=== PATIENT | female | born 2000 | race Caucasian/White ===

== ENCOUNTER 2019-03-15 10:25 | Outpatient (REF) | payer SELFPAY ==
[2019-03-16 13:46] LABS: Chlamydia Result Negative; GC Result Negative; Specimen Description URINE
== END 2019-03-15 10:45 ==
LOC: LBN 10:25
PROVIDERS: PCP Family Medicine; Visit Provider Nurse Practitioner Family
DX: Z11.3 Encounter for screening for infections with a predominantly sexual mode of transmission (principal)
CPT/HCPCS: 87491; 87591

== ENCOUNTER 2020-02-29 16:48 | Outpatient (REF) | payer OTHER, SELFPAY ==
--- NOTE | 2020-02-29 16:20 | PAPFT_PTH ---
PATIENT: Sandra Duran LOC: [facility] U#:[id number] AGE/SX: 20/F ROOM: RE02/29/[address]: Nicole Randall : 2000 BED: DIS: 02/29/2020 SPEC #: [id number] RECD: 03/03/20 12:59 STATUS: MARCUS REQ #: [id number] KIMMIE: 02/29/20 16:[address]: Nicole Randall DEPT: [facility] Cytology RECD BY: Caroline Goledn Tissues: 1 - CX/ENDOCX FOR PAP SMEARS Procedures: PAP THIN PREP/UVM Screening Comments: [id number] (CHLAMYDIA/GC)
[2020-03-04 15:29] LABS: Chlamydia Result Negative (Negative); GC Result Negative (Negative)
== END 2020-02-29 17:08 ==
LOC: NCHCN 16:48
PROVIDERS: PCP Family Medicine; Visit Provider Family Medicine
DX: Z12.4 Encounter for screening for malignant neoplasm of cervix (principal); Z00.00 Encounter for general adult medical examination without abnormal findings; Z01.419 Encounter for gynecological examination (general) (routine) without abnormal findings; Z11.3 Encounter for screening for infections with a predominantly sexual mode of transmission
CPT/HCPCS: 87491; 87591; 88142

== ENCOUNTER 2023-07-25 11:39 | Emergency (ER) | payer MEDICAID, SELFPAY ==
[2023-07-25 11:43] VITALS: BP 158/107; PULSE 81; RESP 18; TEMP 36.5; O2SAT 98
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
[2023-07-25 12:00] VITALS: BP 126/103; PULSE 81; O2SAT 99
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
[2023-07-25 12:15] VITALS: BP 138/94; PULSE 72; O2SAT 98
[2023-07-25] MEDS: Ketorolac 10 MG TAB PO (12:15)
[2023-07-25 13:35] VITALS: BP 143/97; PULSE 78; RESP 16; O2SAT 100
== END 2023-07-25 13:35 | disposition home or self-care (01) ==
PROVIDERS: Emergency Provider Nurse Practitioner Family; PCP Family Medicine
DX: R51.9 Headache, unspecified (principal); S06.0XAA Concussion with loss of consciousness status unknown, initial encounter; Z04.1 Encounter for examination and observation following transport accident; V48.5XXA Car driver injured in noncollision transport accident in traffic accident, initial encounter
CPT/HCPCS: 81025; 99284; 70450; 70486; 72125; 99283

== ENCOUNTER 2023-11-08 18:46 | Outpatient (REF) | payer MEDICAID, SELFPAY ==
[2023-11-08 21:02] LABS: ALT 19 U/L (14-59); AST 13 U/L (15-37); Alkaline Phosphatase 89 U/L (46-116); BUN 11 mg/dL (7-18); Bilirubin, Total 0.66 mg/dL (0.2-1.0); Calcium 8.7 mg/dL (8.5-10.1); Chloride 104 mmol/L (98-107); Estimated GFR 80.68 (mL/min/1.73m2); Glucose 89 mg/dL (74-106); NT-proBNP 20 pg/mL (<300); Potassium 3.6 mmol/L (3.5-5.1); Sodium 142 mmol/L (136-145); TSH (W/Ref FT4) 1.26 uIU/mL (0.36-3.74); Total Protein 7.2 g/dL (6.4-8.2)
== END 2023-11-08 18:47 | disposition home or self-care (01) ==
LOC: LBN 18:46
PROVIDERS: PCP Family Medicine; Visit Provider Nurse Practitioner Family
DX: I10 Essential (primary) hypertension (principal); R53.83 Other fatigue
CPT/HCPCS: 80053; 83880; 84443

== ENCOUNTER 2024-05-02 07:48 | Emergency (ER) | payer BC, SELFPAY ==
[2024-05-02 07:53] VITALS: BP 163/112; PULSE 111; RESP 16; TEMP 36.5; O2SAT 99
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
--- NOTE | 2024-05-02 08:15 | DI.US_ITS ---
Exam(s) US OB 1ST TRIMESTER EXAM: US OB 1ST TRIMESTER CLINICAL HISTORY: positive , llq pain, ?ectopic. COMPARISON: No exams were available for comparison TECHNIQUE: Transabdominal Transvaginal first trimester obstetrical ultrasound performed. FINDINGS: Pelvic Measurments: The ovaries are unremarkable. There is a 1.4 x 1.2 x 1.3 cm fibroid in the left mid uterine body. Uterus: 7.9 long by 4.0 AP by 5.1 transverse cm. In the fundal endometrium, there is a 5 mm round hy poechoic area present. No pole is present. Rt Ovary: 2.9 x 2.8 x 1.8 cm Lt Ovary: 2.9 x 2.3 x 2.1 cm No adnexal masses are seen to suggest ectopic . No free pelvic fluid is present. IMPRESSION: 1. No evidence of an ectopic . 2. 5 mm round hypoechoic area in the fundal endometrium. No pole is present. Follow-up pelvic ultrasound and serial beta HCG levels are recommended for further evaluation. 3. Findings were discussed with Dr. Frankel at 9:20 a.m. on 05/02/2024. DATA REPOSITORY:
[2024-05-02 08:18] VITALS: PULSE 98; RESP 16; O2SAT 99
[2024-05-02 08:28] LABS: Abs Immature Grans 0.01 10^3/uL (0.0-0.06); Absolute Basophil Count 0.03 10^3/uL (0.0-0.2); Absolute Eosinophil Count 0.01 10^3/uL (0.0-0.7); Absolute Lymphocyte Count 0.95 10^3/uL (1.2-3.4); Absolute Monocyte Count 0.62 10^3/uL (0.1-0.8); Absolute Neutrophil Count 3.32 10^3/uL (1.2-6.7); Basophils % 0.6 %; Eosinophils % 0.2 %; HCT 40.3 % (36.0-46.0); HGB 13.7 g/dL (11.2-15.7); Immature Grans % 0.2 %; Lymphocytes % 19.2 %; MCV 88 fL (80-95); MPV 9.2 fL (8.0-11.0); Monocytes % 12.6 %; Neutrophils % 67.2 %; Platelet Count 189 10^3/uL (130-400); RBC 4.56 10^6/uL (3.93-5.22); RDW 11.9 % (11.7-14.6); RDW-SD 38.5 fL; WBC 4.94 10^3/uL (4.4-10.8)
[2024-05-02 08:35] LABS: Bilirubin Small (Negative); Blood Large (Negative); Clarity Cloudy (Clear); Glucose Negative (Negative); Ketones Negative (Negative); Leukocyte Esterase Trace (Negative); Nitrite Negative (Negative); Specific Gravity 1.025 (1.005-1.025)
[2024-05-02 08:47] LABS: Bacteria Many HPF (Negative); Crystals Negative HPF (Negative); Epithelial Cells Many HPF (Negative); Mucus Heavy (Negative); RBC >50 HPF (0-2); WBC >50 HPF (0-5)
[2024-05-02 08:48] LABS: C & S Indicated? No/Sq. Contamination
[2024-05-02 08:51] LABS: ALT 15 U/L (14-59); AST 14 U/L (15-37); Albumin 3.7 g/dL (3.4-5.0); Alkaline Phosphatase 84 U/L (46-116); Anion Gap 8.1 mmol/L (3-11); BUN 11 mg/dL (7-18); Bilirubin, Total 0.77 mg/dL (0.2-1.0); CO2 26.9 mmol/L (21.0-32.0); CREATININE 0.9 mg/dL (0.55-1.02); Calcium 8.8 mg/dL (8.5-10.1); Chloride 104 mmol/L (98-107); Estimated GFR 90.98 (mL/min/1.73m2); Glucose 100 mg/dL (74-106); HCG Quant, Pregnancy 65 mIU/mL (1-3); Potassium 3.2 mmol/L (3.5-5.1); Sodium 139 mmol/L (136-145); Total Protein 7.7 g/dL (6.4-8.2)
[2024-05-02 10:02] VITALS: BP 162/107; PULSE 82; RESP 18; O2SAT 98
== END 2024-05-02 10:04 | disposition home or self-care (01) ==
PROVIDERS: Emergency Provider Emergency Medicine; PCP Family Medicine
DX: O20.9 Hemorrhage in early pregnancy, unspecified (principal); O99.331 Smoking (tobacco) complicating pregnancy, first trimester; F17.210 Nicotine dependence, cigarettes, uncomplicated; Z3A.01 Less than 8 weeks gestation of pregnancy
CPT/HCPCS: 36415; 80053; 86850; 86900; 86901; 99284; 76801; 81003; 81015; 84702; 85025

== ENCOUNTER 2024-08-13 09:14 | Outpatient (CLI) | payer BC, SELFPAY ==
[2024-08-13 09:35] LABS: Abs Immature Grans 0.01 10^3/uL (0.0-0.06); Absolute Basophil Count 0.05 10^3/uL (0.0-0.2); Absolute Eosinophil Count 0.11 10^3/uL (0.0-0.7); Absolute Lymphocyte Count 1.97 10^3/uL (1.2-3.4); Absolute Monocyte Count 0.42 10^3/uL (0.1-0.8); Absolute Neutrophil Count 3.14 10^3/uL (1.2-6.7); Basophils % 0.9 %; Eosinophils % 1.9 %; HCT 42.3 % (36.0-46.0); HGB 14.3 g/dL (11.2-15.7); Immature Grans % 0.2 %; Lymphocytes % 34.6 %; MCH 30.1 pg (27.0-33.0); MCHC 33.8 % (32.0-36.0); MCV 89 fL (80-95); MPV 9.4 fL (8.0-11.0); Monocytes % 7.4 %; Platelet Count 214 10^3/uL (130-400); RBC 4.75 10^6/uL (3.93-5.22); RDW 11.5 % (11.7-14.6)
[2024-08-13 09:37] LABS: ESR 11 mm/hr (0-20)
[2024-08-13 09:54] LABS: Hemoglobin A1C 5.1 % (<5.7)
[2024-08-13 09:58] LABS: C-Reactive Protein < 0.50 mg/dL (<or=0.5)
[2024-08-13 10:20] LABS: Ferritin 72 ng/mL (8-252)
[2024-08-13 10:23] LABS: Folate 15.5 ng/mL (8.6-20.0)
[2024-08-13 10:55] LABS: Iron 93 ug/dL (50-170); Total Iron Binding Capacity 321 ug/dL (250-450); Transferrin Sat 29 % (15-50)
[2024-08-13 18:02] LABS: Rheumatoid Factor <8.6 IU/mL (<12.0)
[2024-08-14 15:34] LABS: ANA Interpretation Negative (Negative)
== END 2024-08-13 09:15 | disposition home or self-care (01) ==
LOC: LBO 09:15
PROVIDERS: Nurse Practitioner Family; PCP Family Medicine; Visit Provider Student in an Organized Health Care Education/Training Program
DX: M79.89 Other specified soft tissue disorders (principal); I10 Essential (primary) hypertension; R53.83 Other fatigue
CPT/HCPCS: 36415; 85652; 82728; 82746; 83036; 83540; 83550; 85025; 86038; 86140; 86431

== ENCOUNTER 2024-08-13 11:31 | Outpatient (CLI) | payer BC, SELFPAY ==
--- NOTE | 2024-08-13 08:15 | DI.RAD_ITS ---
Exam(s) XR HAND LT COMPLETE EXAM: XR HAND LT COMPLETE CLINICAL HISTORY: Left hand pain. TECHNIQUE: 2D digital imaging was performed of the left hand. Three views were obtained. AP, later al and oblique views were obtained. COMPARISON: No exams were available for comparison FINDINGS: BONES: No acute fracture is present. No bony destructive lesion is seen. JOINTS: No dislocation present. The joint spaces are well maintained. No arthritic changes are seen in the joints. SOFT TISSUE: Normal. IMPRESSION: Unremarkable radiographs of the left hand. DATA REPOSITORY: RADIATION DOSE DELIVERED:
== END 2024-08-13 11:32 | disposition home or self-care (01) ==
LOC: DIORS 11:32
PROVIDERS: PCP Family Medicine; Visit Provider Physician Assistant
DX: M79.642 Pain in left hand (principal)
CPT/HCPCS: 73130

== ENCOUNTER 2024-09-17 18:46 | Outpatient (REF) | payer BC, SELFPAY ==
[2024-09-17 21:32] LABS: HGB 13.8 g/dL (11.2-15.7); MCH 30.1 pg (27.0-33.0); MCHC 33.7 % (32.0-36.0); MCV 90 fL (80-95); MPV 11.5 fL (8.0-11.0); Platelet Count 217 10^3/uL (130-400); RBC 4.58 10^6/uL (3.93-5.22); RDW 11.7 % (11.7-14.6); RDW-SD 37.5 fL; WBC 7.93 10^3/uL (4.4-10.8)
[2024-09-17 22:22] LABS: ALT 22 U/L (14-59); AST 14 U/L (15-37); Albumin 4.1 g/dL (3.4-5.0); Alkaline Phosphatase 82 U/L (46-116); Anion Gap 10.5 mmol/L (3-11); BUN 13 mg/dL (7-18); Bilirubin, Total 0.7 mg/dL (0.2-1.0); CO2 29.5 mmol/L (21.0-32.0); Calcium 9.3 mg/dL (8.5-10.1); Chloride 99 mmol/L (98-107); Estimated GFR 80.18 (mL/min/1.73m2); Glucose 121 mg/dL (74-106); Sodium 139 mmol/L (136-145); Total Protein 7.5 g/dL (6.4-8.2)
== END 2024-09-17 18:47 | disposition home or self-care (01) ==
LOC: NCHCN 18:46
PROVIDERS: PCP Family Medicine; Visit Provider Family Medicine
DX: R11.0 Nausea (principal)
CPT/HCPCS: 80053; 85027

== ENCOUNTER 2024-10-09 02:41 | Outpatient (CLI) | payer BC, SELFPAY ==
[2024-10-09 17:32] LABS: Anion Gap 7.3 mmol/L (3-11); BUN 12 mg/dL (7-18); CO2 31.7 mmol/L (21.0-32.0); Calcium 9.4 mg/dL (8.5-10.1); Chloride 101 mmol/L (98-107); Estimated GFR 80.18 (mL/min/1.73m2); Glucose 91 mg/dL (74-106); Potassium 3.2 mmol/L (3.5-5.1); Sodium 140 mmol/L (136-145)
== END 2024-10-09 02:42 | disposition home or self-care (01) ==
LOC: LBO 02:41
PROVIDERS: PCP Family Medicine; Visit Provider Family Medicine
DX: E87.6 Hypokalemia (principal)
CPT/HCPCS: 36415; 80048

== ENCOUNTER 2024-10-18 03:37 | Outpatient (CLI) | payer BC, SELFPAY ==
[2024-10-18 17:55] LABS: Anion Gap 6.3 mmol/L (3-11); BUN 16 mg/dL (7-18); CO2 28.7 mmol/L (21.0-32.0); CREATININE 1.1 mg/dL (0.55-1.02); Calcium 8.9 mg/dL (8.5-10.1); Chloride 101 mmol/L (98-107); Estimated GFR 71.51 (mL/min/1.73m2); Glucose 91 mg/dL (74-106); Potassium 3.3 mmol/L (3.5-5.1); Sodium 136 mmol/L (136-145)
== END 2024-10-18 03:38 | disposition home or self-care (01) ==
LOC: LBO 03:37
PROVIDERS: PCP Family Medicine; Visit Provider Family Medicine
DX: E87.6 Hypokalemia (principal)
CPT/HCPCS: 36415; 80048

== ENCOUNTER 2024-12-11 03:36 | Outpatient (CLI) | payer BC, SELFPAY ==
--- NOTE | 2024-12-11 07:30 | DI.MRI_ITS ---
Exam(s) MR UPPER EXTREMITY LT WO EXAM: MR UPPER EXTREMITY LT WO CLINICAL HISTORY: lt hand pain, finger swelling, M79.89 soft tissue disorders TECHNIQUE: Multiplanar multisequence MRI of the left hand was performed on a 1.5 alice unit. COMPARISON: US US UPPER EXTREMITY VENOUS LT from 07/10/2024 CR XR HAND LT COMPLETE from 08/13/2024 FINDINGS: SKIN/SUBCUTANEOUS: No evidence of skin defect/ulcer and no susceptibility artifact nor other signs of foreign bodies. There is subtle focal subcutaneous edema over the dorsal aspect of the proximal interphalangeal joint of the 3rd-middle finger. MARROW/ARTICULATIONS:There is no evidence of fracture, bone contusion, nor bony erosions.. There are no significant osseous lesions. There is no evidence of osteomyelitis. There are no significant findings in the metacarpophalangeal joints nor in the interphalangeal joints. TENDONS/MUSCLES: Extensor tendons: There is no evidence of abnormal signal in the visualized muscles and tendons.No evidence of tendon tears. No evidence of tenosynovitis. Flexor tendons: No evidence of abnormal signal to suggest tendon tear and no evidence of tenosynovitis. EXTRAMUSCULAR SOFT TISSUES: No abnormal signal, mass, or fluid collection. OTHER: None. IMPRESSION: 1. Minimal findings in the 3rd-middle finger. There is mild relatively focal subcutaneous edema over the dorsal aspect of the 3rd-middle finger in the region of the proximal interphalangeal joint. There is no prominent joint effusion and there is no evidence of para-articular ganglion cyst. 2. There is no abnormal marrow signal in the hand. 3. No abnormalities of the metacarpophalangeal and interphalangeal joints evident. DATA REPOSITORY:
== END 2024-12-11 03:56 ==
LOC: DI 03:36
PROVIDERS: PCP Family Medicine; Visit Provider Student in an Organized Health Care Education/Training Program
DX: M79.89 Other specified soft tissue disorders (principal)
CPT/HCPCS: 73218

== ENCOUNTER 2025-04-26 15:24 | Outpatient (CLI) | payer MEDICAID, SELFPAY ==
[2025-04-26 14:10] LABS: Abs Immature Grans 0.01 10^3/uL (0.0-0.06); HCT 41.3 % (36.0-46.0); HGB 13.9 g/dL (11.2-15.7); Immature Grans % 0.1 %; MCH 29.4 pg (27.0-33.0); MCHC 33.7 % (32.0-36.0); MCV 88 fL (80-95); MPV 9.0 fL (8.0-11.0); Platelet Count 203 10^3/uL (130-400); RBC 4.72 10^6/uL (3.93-5.22); RDW 11.4 % (11.7-14.6); RDW-SD 36.7 fL; WBC 7.61 10^3/uL (4.4-10.8)
[2025-04-26 15:01] LABS: TSH (W/Ref FT4) 1.63 uIU/mL (0.55-4.78)
[2025-04-26 15:06] LABS: ALT 17 U/L (10-49); AST 15 U/L (<34); Albumin 4.5 g/dL (3.2-5.0); Alkaline Phosphatase 85 U/L (46-116); Anion Gap 10.4 mmol/L (3-11); BUN 11 mg/dL (9-23); Bilirubin, Total 0.4 mg/dL (0.2-1.2); CO2 25.6 mmol/L (20.0-31.0); Calcium 9.0 mg/dL (8.3-10.6); Chloride 105 mmol/L (98-107); Glucose 86 mg/dL (74-106); Potassium 3.5 mmol/L (3.5-5.1); Sodium 141 mmol/L (136-145); Total Protein 7.6 g/dL (5.7-8.2)
[2025-04-26 17:13] LABS: HCG Qual (Serum) Positive
== END 2025-04-26 15:25 | disposition home or self-care (01) ==
LOC: LBO 15:28
PROVIDERS: PCP Family Medicine; Visit Provider Obstetrics & Gynecology
DX: N91.2 Amenorrhea, unspecified (principal); Z32.01 Encounter for pregnancy test, result positive; O26.899 Other specified pregnancy related conditions, unspecified trimester; Z67.91 Unspecified blood type, Rh negative
CPT/HCPCS: 36415; 80053; 86850; 86900; 86901; 84144; 84443; 84703; 85025

== ENCOUNTER 2025-04-29 00:44 | Outpatient (CLI) | payer MEDICAID, SELFPAY ==
[2025-04-29 10:31] LABS: HCG Qual (Serum) Positive
[2025-04-30 10:23] LABS: HCG Quant, Pregnancy 178 mIU/mL (1.5-4.2)
== END 2025-04-29 00:45 | disposition home or self-care (01) ==
LOC: LBO 00:44
PROVIDERS: PCP Family Medicine; Visit Provider Obstetrics & Gynecology
DX: N91.2 Amenorrhea, unspecified (principal); Z34.91 Encounter for supervision of normal pregnancy, unspecified, first trimester
CPT/HCPCS: 36415; 84702; 84703

== ENCOUNTER 2025-05-01 00:54 | Outpatient (CLI) | payer MEDICAID, SELFPAY ==
[2025-05-01 12:50] LABS: HCG Quant, Pregnancy 563 mIU/mL (1.5-4.2)
== END 2025-05-01 00:55 | disposition home or self-care (01) ==
PROVIDERS: PCP Family Medicine; Visit Provider Obstetrics & Gynecology
DX: Z34.91 Encounter for supervision of normal pregnancy, unspecified, first trimester (principal)
CPT/HCPCS: 36415; 84702

== ENCOUNTER 2025-05-03 09:05 | Outpatient (CLI) | payer MEDICAID, SELFPAY ==
[2025-05-03 15:56] LABS: HCG Quant, Pregnancy 1453 mIU/mL (1.5-4.2)
== END 2025-05-03 09:06 | disposition home or self-care (01) ==
LOC: LBO 09:06
PROVIDERS: PCP Family Medicine; Visit Provider Obstetrics & Gynecology
DX: O26.851 Spotting complicating pregnancy, first trimester (principal)
CPT/HCPCS: 36415; 84702

== ENCOUNTER 2025-05-06 17:33 | Outpatient (CLI) | payer MEDICAID, SELFPAY ==
[2025-05-06 17:12] LABS: HCG Quant, Pregnancy 5154 mIU/mL (1.5-4.2)
== END 2025-05-06 17:34 | disposition home or self-care (01) ==
PROVIDERS: PCP Family Medicine; Visit Provider Obstetrics & Gynecology
DX: N91.2 Amenorrhea, unspecified (principal); Z34.90 Encounter for supervision of normal pregnancy, unspecified, unspecified trimester
CPT/HCPCS: 36415; 84702

== ENCOUNTER → 2025-05-14 10:11 | Outpatient (CLI) | payer MEDICAID, SELFPAY ==
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
== END ==
LOC: DI 10:11
PROVIDERS: PCP Family Medicine; Visit Provider Obstetrics & Gynecology
DX: O36.80X0 Pregnancy with inconclusive fetal viability, not applicable or unspecified (principal)
CPT/HCPCS: 76801